=== PATIENT | male | born 1990 | race Caucasian/White ===

== ENCOUNTER 2022-02-28 12:48 | Emergency (ER) | payer OTHER ==
[~2022-02-28] VITALS: Ht 185.4 cm; Wt 104.3 kg
[2022-02-28 13:04] VITALS: BP 152/81
[2022-02-28] MEDS: IBUPROFEN 400 MG TABLET PO ONE (15:16)
[2022-02-28] MEDS: ACETAMINOPHEN 120 MG/SUPP.RECT RC ONE (15:16)
[2022-02-28] MEDS ORDERED: IBUPROFEN 400 MG TABLET ONE (15:18)
--- NOTE | 2022-02-28 15:24 | NUR ---
c/o pain on lt toe got heted
--- NOTE | 2022-02-28 16:24 | NUR ---
Patient discharged to home in stable condition. Written and verbal after care instructions given. Patient verbalizes understanding of instruction.
== END 2022-02-28 16:25 | disposition home or self-care (01) ==
LOC: ER 13:08
DX: M79.671 Pain in right foot (principal)
CPT/HCPCS: 73630-TC